=== PATIENT | male | born 1985 | race Caucasian/White ===

== ENCOUNTER → 2016-08-29 | Outpatient (REF) ==
--- NOTE | 2016-08-29 12:12 | REP ---
Clinical: thoracic pain. Technique: AP, lateral, and swimmers views. Findings: Alignment and kyphosis is maintained. Vertebral bodies intact. No acute fracture / compression injury or subluxation. Age-related changes appreciated without overt degenerative disease. Paravertebral soft tissues are normal. Impression: Age appropriate thoracic spine radiograph series. Signed by Antione Henao MD 08/29/2016 12:03 P
--- NOTE | 2016-08-29 12:12 | REP ---
Clinical: Pain and disability . Technique: AP, lateral, bilateral oblique, and coned-down views. Findings: Alignment and lordosis is maintained. The vertebral bodies including transverse process and spinous processes are intact and normal for age. There is no evidence for acute fracture / compression injury or subluxation. No evidence for spondylolysis or spondylolisthesis. No significant degenerative change is noted. Impression: Normal age appropriate lumbosacral spine radiograph series. Signed by Antione Henao MD 08/29/2016 12:04 P
--- NOTE | 2016-08-29 12:13 | REP ---
Clinical: Pain and disability . Technique: AP, lateral, flexion/extension, bilateral oblique, and open-mouth views. Findings: Alignment and lordosis is maintained. There is no evidence for acute fracture / compression injury or subluxation. No significant degenerative changes are appreciated. Oblique views demonstrate patent neural foramen. Open mouth view demonstrates normal C1-C2 articulation and odontoid process. Impression: Normal age appropriate cervical spine series. Signed by Antione Henao MD 08/29/2016 12:04 P
--- NOTE | 2016-08-29 12:27 | REP ---
Clinical: Chest pain . Comparison: None . Technique: PA and lateral. Findings: The mediastinum and cardiac silhouette are normal. The lung augustin are clear and without acute consolidation, effusion, or pneumothorax. The skeletal structures are intact and normal. Impression: 1. No acute cardiopulmonary process. Signed by Antione Henao MD 08/29/2016 12:19 P
== END ==
LOC: M SMT 10:55
PROVIDERS: ATTEND Internal Medicine
DX: Z02.1 Encounter for pre-employment examination (principal)

== ENCOUNTER → 2016-09-05 | Outpatient (REF) | payer OTHER | LOC: M LABDRAW1 11:17 | PROVIDERS: ATTEND Physician Assistant Medical | DX: E22.1 Hyperprolactinemia (principal) ==